=== PATIENT | female | born 1960 | race Caucasian/White ===

== ENCOUNTER → 2023-12-14 | Outpatient (CLI) | payer OTHER ==
[2023-12-14 10:33] LABS: INR 0.9 (<1.2); Partial Thromboplastin Time 24.7 sec (22.0-30.0); Prothrombin Time 10.5 sec (10.0-12.5)
[2023-12-14 15:50] LABS: HCT 41.9 % (37.2-46.3); HGB 13.7 g/dL (12.0-15.0); MCH 30.2 pg (27.0-32.0); MCHC 32.7 g/dL (32.0-37.0); MCV 92.5 FL (80.0-97.0); Mean Platelet Volume 9.5 FL (9.5-12.2); NRBC Per 100 WBC 0 X 10*3/uL (0.00-0.01); Platelet Count 214 X 10*3/uL (140-440); RBC 4.53 X 10*6/uL (4.10-5.20); WBC 4.06 X 10*3/uL (4.50-10.00)
[2023-12-14 16:00] LABS: ALT 18 U/L (8-44); AST 35 U/L (13-35); Albumin 4.4 g/dL (3.8-4.9); Albumin/Globulin Ratio 1.69 Ratio (1.60-3.17); Alkaline Phosphatase 50 U/L (41-126); BUN/Creat Ratio 13.86 Ratio (12.00-20.00); Blood Urea Nitrogen 9.7 mg/dL (9.0-27.0); Calcium 9.6 mg/dL (8.7-10.3); Carbon Dioxide 26.8 mmol/L (21.6-31.8); Chloride 104 mmol/L (96-109); Globulin 2.6 g/dL (1.6-3.3); Glucose 94 mg/dL (70-110); Potassium 4.5 mmol/L (3.5-5.5); Sodium 143 mmol/L (135-145); Total Bilirubin 0.3 mg/dL (0.3-1.2)
== END | disposition home or self-care (01) ==
LOC: LABPAT 09:39
PROVIDERS: ATTEND Orthopaedic Surgery Sports Medicine
DX: Z01.812 Encounter for preprocedural laboratory examination (principal); Z22.322 Carrier or suspected carrier of Methicillin resistant Staphylococcus aureus; M17.11 Unilateral primary osteoarthritis, right knee
CPT/HCPCS: 36415; 80053; 85027; 85610; 85730; 87070

== ENCOUNTER 2023-12-22 05:37 | Day surgery (SDC) | payer OTHER ==
[2023-12-16 11:35] VITALS: BMI 42.5
[~2023-12-22 05:37] MED LIST: ONDANSETRON 4 MG/2 ML VIAL IVP PRN; TRANEXAMIC 1,000 MG/100ML-NACL 1,000 MG in SALINE 1 100ML.BAG IVPB PRN
[2023-12-22] MEDS: LACTATED RINGERS 1,000 ML IV SCH ×2 (05:59→14:17)
[2023-12-22] MEDS: ONDANSETRON 4 MG/2 ML VIAL IVP ONE (06:07)
[2023-12-22] MEDS: GABAPENTIN 300 MG CAP PO PRN (06:07)
[2023-12-22] MEDS: MELOXICAM 7.5 MG TAB PO PRN (06:07)
[2023-12-22] MEDS: DEXAMETHASONE SOD PHOSPHATE 4 MG/ML 1 ML VIAL IV ONE (06:07)
[2023-12-22] MEDS: ACETAMINOPHEN TAB 500 MG TAB PO PRN (06:07)
[2023-12-22] MEDS: MIDAZOLAM 2 MG/2 ML VIAL IVP ONE (06:42)
[2023-12-22] MEDS: fentaNYL (PF) 50 MCG/ML 2 ML AMP IVP ONE (06:42)
[2023-12-22] MEDS ORDERED: PROPOFOL 10 MG/ML 20 ML VIAL IV ONE (07:00)
[2023-12-22] MEDS ORDERED: MIDAZOLAM 2 MG/2 ML VIAL ONE (07:00)
[2023-12-22] MEDS ORDERED: SODIUM CHLORIDE 0.9% (PF) 10 ML VIAL ONE (07:00)
[2023-12-22] MEDS ORDERED: ROPIVACAINE 5 MG/ML 30 ML VIAL ONE (07:00)
[2023-12-22] MEDS ORDERED: PHENYLEPHRINE-0.9% NACL SYG 1,000 MCG/10 ML SYRINGE ONE (07:00)
[2023-12-22] MEDS ORDERED: TRANEXAMIC 1,000 MG/100ML-NACL PREMIX BAG ONE (07:00)
[2023-12-22] MEDS ORDERED: HYDROmorphone 0.5 MG/0.5 ML SYRINGE IVP PRN ×2 (07:00→09:22)
[2023-12-22] MEDS: ceFAZolin 3,000 MG in SODIUM CHLORIDE 0.9% IRRIGATIO 3,000 ML IRRIGATION ONE (07:38)
[2023-12-22] MEDS ORDERED: ACETAMINOPHEN TAB 325 MG TAB PO PRN (09:22)
[2023-12-22] MEDS ORDERED: NA PHOS,M-B/NA PHOS,DI-BA 133 ML ENEMA RECTAL PRN (09:22)
[2023-12-22] MEDS ORDERED: traMADol 50 MG TAB PO PRN (09:22)
[2023-12-22] MEDS ORDERED: diazePAM 5 MG TAB PO PRN (09:22)
[2023-12-22] MEDS ORDERED: HYDROmorphone 1 MG/ML 1 ML SYRINGE IVP PRN (09:22)
[2023-12-22] MEDS ORDERED: TEMAZEPAM 15 MG CAP PO PRN (09:22)
[2023-12-22] MEDS ORDERED: MAGNESIUM HYDROXIDE 2,400 MG/30 ML CUP PO PRN (09:22)
[2023-12-22] MEDS ORDERED: ONDANSETRON 4 MG/2 ML VIAL IVP PRN (09:22)
[2023-12-22] MEDS ORDERED: NALOXONE 0.4 MG/ML 1 ML VIAL IV PRN (09:22)
[2023-12-22] MEDS ORDERED: bisacodyL 10 MG SUPP RECTAL PRN (09:22)
[2023-12-22] MEDS: LACTATED RINGERS 1,000 ML IV ONE (09:35)
[2023-12-22] MEDS: ROPIVACAINE 1,100 MG, SODIUM CHLORIDE 0.9% 500 ML 330 ML, EMPTY PAIN BALL 1 EACH MISCELLANE PRN (09:51)
--- NOTE | 2023-12-22 10:35 | XR ---
EXAMINATION TYPE: XR knee limited RT DATE OF EXAM: 12/22/2023 Comparison: None Clinical History: 63-year-old female Evaluation for Postop abnormality and alignment Findings: Images demonstrate placement of right total knee arthroplasty. Old distal femoral and proximal tibial components of prosthesis appear well seated without periprosthetic fracture. Alignment grossly anato michelle. Anterior soft tissue swelling with scattered soft tissue air related to recent operation. There is a 7 mm density superiorly that could represent loose body or bony debris in the suprapatellar pouc h. Impression: Postoperative changes of right total knee arthroplasty without evident complication. There may be a 7 mm bone debris fragment in the suprapatellar pouch.
--- NOTE | 2023-12-22 11:24 | P.ANPRN ---
Procedure Note - Anesthesia - Nerve Block Performed Right Adductor Canal Infusion Time Out Performed: Yes (0641) Date of Procedure: 12/22/23 Procedure Start Time: 06:42 Procedure Stop Time: 06:47 Location of Patient: PreOp Indication: Acute Post-Operative Pain, Requested by Surgeon Specifically requested for management of pain by DrAlex: Robbi Dueñas Sedation Type: Sedate with meaningful contact maintained Preparation: Sterile Prep, Sterile Dressing Position: Supine Catheter Depth at Skin (cm): 7 Catheter: None Needle Types: Pajunk Needle Gauge: 18 Ultrasound used to visualize needle placement: Yes Ultrasound used to observe medication spread: Yes Injectate: 0.5% Ropivacaine (see comment for volume) (15cc+ 10cc nacl pf) Blood Aspirated: No Pain Paresthesia on Injection Noted: No Resistance on Injection: Normal Image Stored and Saved: Yes Events: Uneventful and Well Tolerated
--- NOTE | 2023-12-22 11:25 | P.ANPRN ---
Procedure Note - Anesthesia - Nerve Block Performed Right iPack Single Time Out Performed: Yes (0641) Date of Procedure: 12/22/23 Procedure Start Time: 06:48 Procedure Stop Time: 06:52 Location of Patient: PreOp Indication: Acute Post-Operative Pain, Requested by Surgeon Specifically requested for management of pain by DrAlex: Robbi Dueñas Sedation Type: Sedate with meaningful contact maintained Preparation: Sterile Prep Position: Supine Catheter: None Needle Types: Pajunk Needle Gauge: 21 Ultrasound used to visualize needle placement: Yes Ultrasound used to observe medication spread: Yes Injectate: 0.5% Ropivacaine (see comment for volume) (15cc +10cc nacl pf) Blood Aspirated: No Pain Paresthesia on Injection Noted: No Resistance on Injection: Normal Image Stored and Saved: Yes Events: Uneventful and Well Tolerated
--- NOTE | 2023-12-22 11:52 | OP ---
OPERATIVE REPORT DATE OF SERVICE : 12/22/[address] LIGHT WIRER: Sohan Salamanca PA-C. PREOPERATIVE DIAGNOSIS: Right knee osteoarthrosis. POSTOPERATIVE DIAGNOSIS: Right knee osteoarthrosis. OPERATION: Right total knee arthroplasty. ANESTHESIA: Spinal with sedation. ESTIMATED BLOOD LOSS: 100 mL. TOURNIQUET TIME: 52 minutes at 250 mmHg. COMPLICATIONS: None apparent. DRAINS: None. DISPOSITION: Postanesthesia care unit. INDICATIONS: Sushma is a very pleasant 63-year-old female with long-standing history of right knee pain. History and physical examination are consistent with advanced right knee osteoarthrosis. She has been through significant operative management up to this point. Further treatment options were discussed, and she has decided to go forward with a right total knee arthroplasty. The risks of procedure were discussed with her in detail. These risks include, but are not limited to risk of infection, nerve damage, bleeding, pain, and a small risk of deep vein thrombosis, which could lead to fatal pulmonary embolism. There is also a small risk of loosening of the implant, which could require revision operation. The patient understands these risks. All of her questions were answered to her satisfaction. Appropriate informed consent was obtained. DESCRIPTION OF PROCEDURE: The patient was identified in the preoperative holding area. Surgical site was marked by both the patient and myself. She was given 2 g of Ancef IV for prophylactic purposes. She was then transported to the operative suite. She was placed supine on the operating room table. Spinal anesthetic was then administered and dosed per the Anesthesia Department without apparent complication. An examination under anesthesia was then performed. The patient was 2 to 3 degrees shy of full extension. She had 95 degrees of flexion and medial collateral ligament, lateral collateral ligament, and posterior cruciate ligaments were stable. Tourniquet was then placed high on the right upper thigh well-padded in preparation for surgery. The patient's right lower extremity was then prepped and draped in the usual sterile fashion. Standard surgical pause undertaken to ensure that we were operating the correct site and that appropriate preoperative antibiotics had been given. All staff in the room were in agreement, and we proceeded. The outlines of the patella marked with a surgical pen. A planned 12 cm vertical incision centered over the patella and was marked with a surgical pen. Legs were then exsanguinated with an Esmarch dressing. The knee was then flexed, and the tourniquet was inflated to 250 mmHg. The total tourniquet time for the procedure was 52 minutes. Incision was then made with a 10-blade scalpel. Dissection was carried down sharply overlying fascia. Great care was taken to minimize the skin flaps. The knee was then exposed using a standard medial parapatellar approach. A small cuff of quadriceps tendon was then left for suturing. She was in a bit of varus preoperatively. A standard medial release was then made. The superficial medial collateral ligament was dissected off the bone around to the posterior aspect of the proximal tibia. The medial meniscus was then excised as well. The lateral meniscus was also released anteriorly. The leg was then externally rotated. The patella was everted. The knee was flexed. Retractors were then placed to protect the collateral ligaments. I then proceeded to remove the infrapatellar fat pad. This was excised sharply tangentially with fibers of the patellar tendon. I then proceeded to remove the peripheral osteophytes. This was done with a rongeur. I then proceeded with the distal femoral resection. She did have near full extension. A planned 9 mm resection was then done. The femoral canal was then entered in the midline of the femur approximately 10 mm anterior to the origin of the posterior cruciate ligament. The kasandra was then advanced on the center of the femur and placed intramedullary. Based on the preoperative radiographs, the angle between the anatomic and mechanical axis of the femur was approximately 4 to 5 degrees. The valgus angle of the distal femoral cutting guide was then set at 4 degrees for the right knee. The distal femoral cutting guide was then advanced over the intramedullary kasandra. This was seated firmly against the femur. Then, as mentioned, planned to take 9 mm off the distal femur. The cutting block was then secured onto the femur with pins. The jig was then removed. The distal femoral cut was made through the slot of the block. The pins were then removed and the distal femoral cutting block was removed. The accuracy of the distal femoral cuts was checked with 2 flat bars. I then proceeded with femoral sizing. Posterior referencing sizing guide was held firmly against the resected distal surface of the femur. The posterior condyles were resting on the posterior plane of the guide. The sizing stylus was then placed on the anterior femur. The size was measured as a size 8. I then assessed for femoral rotation. The plan was for 3 degrees of external rotation. Three degrees of external rotation was placed onto the jig. These holes were then marked. I then confirmed the rotation by 3 separate methods. This was done using the epicondylar axis as well as Hair's line and posterior referencing. It was deemed that the external rotation was proper. I then went forward with placement of the femoral cutting block. This was placed over the previously placed pin holes. The Jhoan wing was then placed on the anterior slots to ensure that we would not notch the anterior femur at the anterior femoral cut. I then proceeded with the anterior femoral cut. This was flushed with the anterior cortex of the femur. The posterior cuts were then made followed by the anterior chamfer cut, then the posterior chamfer cut. The cutting block was then removed. Throughout the resection, the collateral ligaments were protected with retractors. We then placed a trial size 8 femur. It was slightly wide, but the narrow fit very nicely, and it fit flush with the distal end of the femur. The drill hole was then made. I then proceeded with the tibial cut. I planned for a cruciate-retaining knee. The guide was placed and set for varus and valgus and for slope. The height was set for approximately 2 mm resection from the medial tibial plateau, which was the lower side. I was happy with the alignment and the amount of resection. The cutting block was then pinned to the proximal tibia. The alignment kasandra was removed and the proximal tibia was resected with a reciprocating saw. Again, this was done with retractors protecting the collateral ligaments as well as the posterior cruciate ligament. I then proceeded to evaluate the flexion and extension gaps. A 10 mm block was then placed. The flexion and extension gaps were equal. I then proceeded with resection of the posterior osteophytes. She had fairly extensive posterior osteophytes. This was done using a curved osteotome. This resected the posterior osteophytes. The posterior capsular stripping was done off the posterior aspect of the femur. The osteophytes were then removed. I then proceeded with resection of the patella. The thickness of the patella was measured using the caliper. The thickness was 22 mm. The thickness of the anticipated patellar dome was taken into account. Resection was then performed and confirmed to be equal in 4 quadrants using a caliper. Approximately, 14 mm of bone remained after resection. A 29 x 8 standard patellar trial was then placed. The holes were drilled and the trial was then placed. I then proceeded with sizing the tibial plate. A size D tibial plate fit very nicely. I then placed the trial femur, the tibial tray, and the patellar button. A 10 mm trial tibial insert was also placed. The components fit very nicely. She had full extension and flexion. The extension and flexion gaps were equal and stable to both varus and valgus stress. The patella tracked appropriately. The tibial tray rotation was then marked with a Bovie. This was externally rotated properly. I then proceeded with tibial preparation. I first drilled the femoral holes and removed the femoral component. The tibial tray was then set for proper external rotation as well as medial lateral placement onto the tibia. It was then pinned into place. I then proceeded with punching the keel. I then decided to proceed with cementing of all our components. The knee was thoroughly irrigated with sterile saline solution via pulse lavage. The lateral genicular artery was identified and cauterized. All blood was removed from the bone of the tibia, femur, and patella with pulse lavage. I then proceeded with cementing. Two packs of antibiotic bone cement prepared on the back table by salesperson surgical appliances. I then proceeded with cementing the tibia first. The cement was impacted into the keel as well as deeply seated in the bone. A second coat of cement was then placed. The tibia was then impacted into place. Excess cement was removed with Zainab's and Jokers. I then proceeded with cementing of the femoral component. The femoral component was also cemented using standard technique. Excess cement was removed. A 10 mm trial insert was then placed into the knee. It was brought into full extension with a constant axial load placed until the cement had hardened. The patellar component was then cemented. This held firmly with a compressive device until the cement had dried. When the cement had dried, the knee was taken out of extension. All excess cement was removed from around the prosthesis. I then trialed the knee with a 10 mm insert. Flexion and extension gaps were appropriate. I then trialed the knee with a 12 mm insert. The flexion and extension gaps felt much better. The knee was stable with a 12 mm insert. It came into full extension. I decided to go forward with a 12 mm Medial Congruent cross-linked cruciate-retaining tibial insert. Polyethylene was then placed on the tibial tray and locked into place. The knee was then reduced. The knee was again further irrigated with sterile saline solution with antibiotic added. The tourniquet was then deflated. Total tourniquet time for the procedure was 52 minutes at 250 mmHg. Final components were Emmanuel Persona size 8 narrow cruciate-retaining femoral component, size D tibial tray, a 12 mm Medial Congruent cruciate-retaining polyethylene insert, and a 29 x 8 mm patella. I then proceeded with closure. Again, the knee was thoroughly irrigated. The quadriceps tendon and the medial retinaculum were reapproximated with #2 Ethibond suture. The extensor mechanism was then closed with a running #2 Quill suture. Subcutaneous tissues were then closed with 2-0 Vicryl interrupted suture. The skin was closed with a running 3-0 Quill suture. Dermabond was applied to the incision. Sterile compressive dressings were then applied. All sponge and needle counts were deemed correct prior to closure. The patient tolerated the procedure without apparent complication. She was transferred to the recovery room in stable condition. MMODL / IJN: [id number] /
[2023-12-22] MEDS: HYDROcodone/APAP 7.5-325MG 1 EACH TAB PO PRN ×2 (12:35→16:51)
[2023-12-22] MEDS: HYDROmorphone 0.5 MG/0.5 ML SYRINGE IVP PRN (14:14)
--- NOTE | 2023-12-22 17:44 | P.HPIM ---
History of Present Illness H&P Date: 12/22/23 Chief Complaint: Right knee surgery This is a 63-year-old patient, follows with Dr. Mark Zheng. Chronic stable medical conditions include hypertension, hyperlipidemia, osteoarthritis. Patient is undergone right total knee arthroplasty. By Dr. Dueñas. Postprocedure laying in bed. No nausea vomiting no chest pain. Currently pain is controlled. Review of systems: GEN.: None EYES: None HEENT: None NECK: None RESPIRATORY: None CARDIOVASCULAR: None GASTROINTESTINAL: None GENITOURINARY: None MUSCULOSKELETAL: Joint pains LYMPHATICS: None HEMATOLOGICAL: None PSYCHIATRY: None NEUROLOGICAL: None Social history: No smoking no alcohol. Lives with her Physical examination: VITAL SIGNS: 97.6, 60, 18, 155 x 76, 98% room air GENERAL: BMI 43.1, reclining bed awake comfortable. EYES: Pupils equal. Conjunctiva zev l. HEENT: External appearance of nose and ears normal, oral cavity grossly normal. NECK: JVD not raised; masses not palpable. HEART: First and second heart sounds are normal; no edema. LUNGS: Respiratory rate normal; clear to auscultation. ABDOMEN: Soft, nontender, liver spleen not palpable, no masses palpable. PSYCH: Alert and oriented x3; mood and affect zev l. MUSCULOSKELETAL: Dressing over the right knee. Evidence of OA NEUROLOGICAL: Cranial nerves grossly intact; no facial asymmetry, power and sensation grossly intact. LYMPHATICS: No lymph nodes palpable in the axilla and neck INVESTIGATIONS, reviewed in the clinical context: December 14, 2023: White count 4.0 hemoglobin 13.7 platelets 214 potassium 4.5 creatinine 0.7 Assessment plan: -Right total knee arthroplasty, by Dr. Robbi Dueñas Aspirin for DVT prophylaxis. Pain control -Hyperlipidemia Pravachol 40 mg nightly -Essential hypertension Vasotec 10 mg nightly -Primary osteoarthritis Pain medications as needed -Morbid obesity BMI 43.1 Weight loss measures Care was discussed with the patient and the at the bedside. Questions answered. Thank you Dr. Dueñas Past Medical History Past Medical History: Hyperlipidemia, Hypertension, Osteoarthritis (OA) History of Any Multi-Drug Resistant Organisms: None Reported Additional Past Surgical History / Comment(s): THROAT SURGERY FOR ACHALSIA- 08/2019 (HELLER MYOTOMY). COLONOSCOPY. EGD WITH DILITATION Past Anesthesia/Blood Transfusion Reactions: No Reported Reaction Additional Past Anesthesia/Blood Transfusion Reaction / Comment(s): NEVER HAD BLOOD TRANSFUSION Past Psychological History: No Psychological Hx Reported Smoking Status: Never smoker Past Alcohol Use History: None Reported Past Drug Use History: None Reported - Past Family History Mother Family Medical History: Cancer Additional Family Medical History / Comment(s): LUNG Medications and Allergies Home Medications Medication Instructions Recorded Confirmed Type Enalapril [Vasotec] 10 mg PO HS 12/16/23 12/16/23 History Pravastatin Sodium [Pravachol] 40 mg PO HS 12/16/23 12/16/23 History Allergies Allergy/AdvReac Type Severity Reaction Status Date / Time No Known Allergies Allergy Verified 12/22/23 05:56 Physical Exam Vitals: Vital Signs Temp Pulse Resp BP Pulse Ox 12/22/23 13:33 97.6 F 60 18 155/76 98 12/22/23 11:24 97.7 F 72 16 141/75 97 12/22/23 10:53 79 16 113/58 95 12/22/23 10:23 76 8 L 126/59 95 12/22/23 10:08 62 15 119/60 97 12/22/23 09:53 54 L 14 127/61 94 L 12/22/23 09:38 68 23 127/61 95 12/22/23 09:23 59 L 15 120/62 96 12/22/23 09:08 97.8 F 66 12 122/62 97 12/22/23 06:55 18 153/63 98 12/22/23 06:10 96.8 F L 77 20 144/82 94 L Intake and Output 12/22/23 12/22/23 12/22/23 06:59 14:59 22:59 Intake Total 200 1001 Output Total 100 Balance 200 901 Intake: IV 200 1001 Output: Estimated Blood Loss 100 Other: Weight 110.4 kg 110.4 kg Thrombosis Risk Factor Assmnt - Choose All That Apply Any of the Below Risk Factors Present?: Yes Each Factor Represents 1 point: Obesity (BMI >25) Each Risk Factor Represents 2 Points: Age 61-74 years, Major surgery Each Risk Factor Represents 5 Points: Elective major lower extremity arthoplasty Thrombosis Risk Factor Assessment Total Risk Factor Score: 10 Thrombosis Risk Factor Assessment Level: High Risk
[2023-12-22] MEDS: SENNOSIDES-DOCUSATE SODIUM 1 EACH TAB PO SCH (21:52)
[2023-12-22] MEDS: lisinopriL 20 MG TAB PO SCH (21:52)
[2023-12-22] MEDS: PRAVASTATIN SODIUM 40 MG TAB PO SCH (21:52)
[2023-12-22] MEDS: ASPIRIN 81 MG PO SCH (21:52)
[2023-12-23 08:57] VITALS: BP 146/84; PULSE 73; RESP 17; TEMP 98.1
--- NOTE | 2023-12-23 09:12 | P.PN ---
Progress Note - Text Progress Note Date: 12/23/23 Postoperative day # 1 status post total knee arthroplasty, and adductor canal catheter placed for postoperative analgesia, currently at ropivacaine 0.2% 8 mL per hour and continuous infusion, visual analogue scale is 4/10, patient using oral pain medication for breakthrough pain. Assessment and plan= Acute postoperative pain, adductor canal catheter for pain control, pain is well controlled we'll continue the same management.
--- NOTE | 2023-12-23 11:20 | P.DS ---
Providers Attending physician: Robbi Dueñas Consults: 12/22/23 09:22 Consult Physician Routine Consulting Provider: Siva Rios Consult Reason/Comments: post op medical management Do you want consulting provider notified?: Yes Primary care physician: Mark Zheng - Discharge Diagnosis(es) (1) Osteoarthritis of right knee Patient was admitted to the OR on 12/22/23 to undergo a right total knee arthroplasty. She had failed conservative measures as an outpatient and desired to proceed with elective surgery after given informed consent. She underwent the above procedure which she tolerated well without complication. Postoperative hospital course has remained without complication. On day of discharge she is afebrile, vital signs stable, labs within acceptable ranges, tolerating by mouth meds and diet, voiding without difficulty, positive flatus, denies abdominal pain or calf pain, pain is controlled on oral pain medication and has no new complaints. Wound is benign, neurovascular status is intact, calf is soft and nontender, abdomen soft and nontender. Review of systems is negative for numbness, tingling, fever, chills, chest pain, shortness of breath, nausea, vomiting, dizziness, headaches, slurred speech or other. Current Visit: Yes Status: Acute Priority: Medium Procedures: Right TKA Patient Condition at Discharge: Good Plan - Discharge Summary Discharge Rx Participant: Yes New Discharge Prescriptions: New Aspirin [Adult Low Dose Aspirin EC] 81 mg PO BID #60 tab HYDROcodone/APAP 7.5-325MG [[place] 7.5-325] 1 - 2 each PO Q6HR PRN #42 tab PRN Reason: Pain Docusate [Colace] 100 mg PO BID #60 capsule Ondansetron [Zofran] 4 mg PO Q8HR PRN #21 tab PRN Reason: Nausea Continue Enalapril [Vasotec] 10 mg PO HS Pravastatin Sodium [Pravachol] 40 mg PO HS Discharge Medication List Enalapril [Vasotec] 10 mg PO HS 12/16/23 [History] Pravastatin Sodium [Pravachol] 40 mg PO HS 12/16/23 [History] Aspirin [Adult Low Dose Aspirin EC] 81 mg PO BID #60 tab 12/23/23 [Rx] Docusate [Colace] 100 mg PO BID #60 capsule 12/23/23 [Rx] HYDROcodone/APAP 7.5-325MG [[place] 7.5-325] 1 - 2 each PO Q6HR PRN #42 tab 12/23/23 [Rx] Ondansetron [Zofran] 4 mg PO Q8HR PRN #21 tab 12/23/23 [Rx] Follow up Appointment(s)/Referral(s): Robbi Dueñas MD [STAFF PHYSICIAN] - 12/30/23 9:50 am Mark Zheng MD [Primary Care Provider] - 1 Week Discharge Disposition: HOME WITH HOME HEALTH SERVICES
[2023-12-23 11:31] LABS: Basophils # (A) 0 X 10*3/uL (0.00-0.10); Basophils % (A) 0 %; Eosinophils # (A) 0.01 X 10*3/uL (0.04-0.35); Eosinophils % (A) 0.2 %; HCT 35.1 % (37.2-46.3); HGB 11.3 g/dL (12.0-15.0); Lymphocytes # (A) 1.98 X 10*3/uL (0.90-5.00); MCH 30.2 pg (27.0-32.0); MCHC 32.2 g/dL (32.0-37.0); MCV 93.9 FL (80.0-97.0); Mean Platelet Volume 9.8 FL (9.5-12.2); Monocytes # (A) 0.55 X 10*3/uL (0.20-1.00); Monocytes % (A) 8.6 %; NRBC Per 100 WBC 0 X 10*3/uL (0.00-0.01); Neutrophils # (A) 3.83 X 10*3/uL (1.80-7.70); Neutrophils % (A) 59.9 %; Platelet Count 200 X 10*3/uL (140-440); RBC 3.74 X 10*6/uL (4.10-5.20); RDW 12.8 % (11.5-14.5); WBC 6.39 X 10*3/uL (4.50-10.00)
[2023-12-23] MEDS: MULTIVITAMINS, THERA 1 EACH TAB PO SCH (12:04)
--- NOTE | 2023-12-23 16:32 | P.PN ---
Progress Note - Text Progress Note Date: 12/23/23 Chief Complaint: Right knee surgery This is a 63-year-old patient, follows with Dr. Mrak Zheng. Chronic stable medical conditions include hypertension, hyperlipidemia, osteoarthritis. Patient is undergone right total knee arthroplasty. By Dr. Dueñas. Postproce dure laying in bed. No nausea vomiting no chest pain. Currently pain is controlled. December 22: Doing better. Tolerating diet. No nausea vomiting. Pain is suggestively controlled. Discussed. Social history: No smoking no alcohol. Lives with her Physical examination: VITAL SIGNS: 98.1, 73, 17, 1 4684, 95% room air GENERAL: Sitting up, comfortable EYES: Pupils equal. Conjunctiva zev l. HEENT: External appearance of nose and ears normal, oral cavity grossly normal. NECK: JVD not raised; masses not palpable. HEART: First and second heart sounds are normal; no edema. LUNGS: Respiratory rate normal; clear to auscultation. ABDOMEN: Soft, nontender, liver spleen not palpable, no masses palpable. PSYCH: Alert and oriented x3; mood and affect zev l. MUSCULOSKELETAL: Dressing over the right knee. Evidence of OA INVESTIGATIONS, reviewed in the clinical context: December 22: White count 6.3 hemoglobin 11.3 platelets 200 December 14, 2023: White count 4.0 hemoglobin 13.7 platelets 214 potassium 4.5 creatinine 0.7 Assessment plan: -Right total knee arthroplasty, by Dr. Robbi Dueñas Aspirin for DVT prophylaxis. Pain control -Acute postprocedure blood loss anemia Add ferrous sulfate p.o. -Hyperlipidemia Pravachol 40 mg nightly -Essential hypertension Vasotec 10 mg nightly -Primary osteoarthritis Pain medications as needed -Morbid obesity BMI 43.1 Weight loss measures Discussed with the patient. Questions answered. Follow-up with PCP. Thank you Dr. Dueñas Past Medical History Past Medical History: Hyperlipidemia, Hypertension, Osteoarthritis (OA) History of Any Multi-Drug Resistant Organisms: None Reported Additional Past Surgical History / Comment(s): THROAT SURGERY FOR ACHALSIA- 08/2019 (HELLER MYOTOMY). COLONOSCOPY. EGD WITH DILITATION Past Anesthesia/Blood Transfusion Reactions: No Reported Reaction Additional Past Anesthesia/Blood Transfusion Reaction / Comment(s): NEVER HAD BLOOD TRANSFUSION Past Psychological History: No Psychological Hx Reported Smoking Status: Never smoker Past Alcohol Use History: None Reported Past Drug Use History: None Reported
== END 2023-12-23 13:25 | disposition home health service (06) ==
LOC: OR 05:37 → 4SSUR 10:42 → OR 12-23 13:25
PROVIDERS: ATTEND Orthopaedic Surgery Sports Medicine
DX: M17.11 Unilateral primary osteoarthritis, right knee (principal); G89.18 Other acute postprocedural pain; M25.761 Osteophyte, right knee; I10 Essential (primary) hypertension; E78.5 Hyperlipidemia, unspecified; E66.01 Morbid (severe) obesity due to excess calories; Z68.41 Body mass index [BMI] 40.0-44.9, adult; Z83.3 Family history of diabetes mellitus; Z79.899 Other long term (current) drug therapy; Z82.49 Family history of ischemic heart disease and other diseases of the circulatory system
CPT/HCPCS: 97161; 64999; 64448; 85025; 73560; 27447; C1776; C1713; C1751; J2250; J1100; J0690 ×3; J2405; J3010; J2795; J1170 ×2